=== PATIENT | male | born 2000 | race Caucasian/White ===

== ENCOUNTER 2018-11-27 23:14 | Emergency (ER) | payer OTHER ==
[2018-11-27 23:20] VITALS: Ht 170.2 cm
[2018-11-28 01:32] VITALS: BP 124/54
== END 2018-11-28 01:32 | disposition home or self-care (01) ==
LOC: ED 23:14
DX: J98.01 Acute bronchospasm (principal); L30.9 Dermatitis, unspecified
CPT/HCPCS: J2930; J7613; J7644